=== PATIENT | female | born 1935 | race Caucasian/White ===

== ENCOUNTER 2021-01-25 08:36 | Day surgery (SDC) | payer OTHER, MEDICAID, SELFPAY ==
[~2021-01-25] VITALS: Ht 152.4 cm; Wt 62.1 kg
[2021-01-25] MEDS ORDERED: MIDAZOLAM HCL 5 MG/5 ML VIAL ONE (10:07)
[2021-01-25] MEDS ORDERED: MEPERIDINE 100 MG INJ. 100 MG/ML VIAL ONE (10:07)
[2021-01-25 13:18] VITALS: BP_SYST 127
== END 2021-01-25 11:25 | disposition home or self-care (01) ==
LOC: SDS 08:36 → SMU 08:37 → SDS 11:25
PROVIDERS: ATTEND Internal Medicine Gastroenterology
DX: R19.4 Change in bowel habit (principal); D12.2 Benign neoplasm of ascending colon; K29.50 Unspecified chronic gastritis without bleeding; K57.30 Diverticulosis of large intestine without perforation or abscess without bleeding; K64.8 Other hemorrhoids; Z86.010 Personal history of colon polyps; K21.9 Gastro-esophageal reflux disease without esophagitis; I10 Essential (primary) hypertension; E78.00 Pure hypercholesterolemia, unspecified; M81.0 Age-related osteoporosis without current pathological fracture; Z79.899 Other long term (current) drug therapy; Z20.822 Contact with and (suspected) exposure to COVID-19
CPT/HCPCS: 36415; 43239; 45380; 87081; 88305; 88312; 88313; 99152; 99153; G0378; J2175; J2250; U0003; 45385